=== PATIENT | female | born 1990 | race African-American/Black ===

== ENCOUNTER 2021-10-12 23:24 | Emergency (ER) | payer OTHER, SELFPAY ==
--- NOTE | ~2021-10-12 | CT_ITS ---
EXAMINATION: CT abdomen pelvis w con DATE: 10/13/2021 00:13 INDICATION: Periumbilical pain and drainage for one week TECHNIQUE: Computed tomography (CT) of the abdomen and pelvis was performed with 100 cc Omnipaque 350 intravenous contrast. Automated exposure control and iterative reconstruction technique were employe d. Exam dose: 1295.30 mGy-cm total exam DLP. COMPARISON: None. FINDINGS: The lung bases are clear of infiltrate or consolidation. Normal heart size. No pericardial or pleural effusion. The liver, gallbladder, bile ducts, spleen, pancreas, pancreatic duct, and adrenal glands and kidneys appear normal. Normal caliber of the abdominal aorta. No intraperitoneal or retroperitoneal or pelvic mass lesion or adenopathy or ascites. The uterus is enlarged. The adnexal areas are unremarkable. The urinary bladd er is relatively evacuated. The stomach is distended. No bowel obstruction or intraperitoneal free air. Small fat-containing umbilical hernia. Included skeletal structures are unremarkable. IMPRESSION: Small fat-containing umbilical hernia Reviewed, dictated and finalized at [facility]. Reviewed, dictated and finalized at [facility]. GENCY ROOM DOCTOR
[2021-10-12 23:28] VITALS: BP 147/83; PULSE 78; RESP 18; TEMP 36.9; O2SAT 100
[2021-10-12 23:48] LABS: Basophils Percent Auto 0.5 % (0.2-1.2); Eosinophils Absolute Auto 0.1 K/mm3 (0-0.3); Eosinophils Percent Auto 1.8 % (0-4.4); Hematocrit 33.5 % (37.0-47.0); Hemoglobin 10.5 g/dL (12.0-15.0); Immature Granulocyte Absolute 0.01 K/mm3 (0.00-0.031); Immature Granulocyte Percent A 0.1 % (0-0.5); Lymphocytes Absolute Auto 2.34 K/mm3 (0.9-3.2); Lymphocytes Percent Auto 30.8 % (18.3-44.2); Mean Corpuscular HGB Conc 31.3 g/dl (32-36); Mean Corpuscular Hemoglobin 24.8 pg (26-34); Mean Corpuscular Volume 79.2 fl (80-100); Mean Platelet Volume 11.6 fl (7.4-10.4); Monocytes Absolute Auto 0.5 K/mm3 (0.1-0.6); Monocytes Percent Auto 6.4 % (2.6-8.5); Neutrophils Absolute Auto 4.6 K/mm3 (1.3-6.7); Neutrophils Percent Auto 60.4 % (45.5-73.1); Platelet Count Result 380 k/mm3 (150-375); Red Blood Count 4.23 M/mm3 (4.2-5.4); Red Cell Distribution Width 14.3 % (11.5-14.5); White Blood Count 7.6 K/mm3 (4.5-10.0)
[2021-10-13 00:01] LABS: Anion Gap 11 mmol/L (8-16); Blood Urea Nitrogen 13 mg/dL (7-17); Calcium 9.7 mg/dL (8.4-10.2); Carbon Dioxide 26 mmol/L (22-30); Chloride 101 mmol/L (98-107); Estimated CRCL calculation 104 ml/min; Estimated Glomerular Filt Rate > 60; Glucose 109 mg/dL (65-110); Potassium 3.5 mmol/L (3.4-5.0); Sodium 138 mmol/L (137-145)
--- NOTE | 2021-10-13 00:49 | ED.ABDPAIN ---
HPI - Abdominal Pain General Chief Complaint: Abdominal Pain Stated Complaint: abdominal pain Time Seen by Provider: 10/12/21 23:31 Source: patient Mode of arrival: ambulatory Limitations: no limitations History of Present Illness HPI narrative: 30-year-old with no major medical problems here with complaints of pain around her umbilicus and drainage. She states that this started about a week ago drainage is foul-smelling and it constantly oozes. She denies any fever or chills. MD elicited complaint: abdominal pain Pertinent past history: none Onset (ago): week(s) (1) Location: periumbilical Severity: moderate Quality: aching Radiation: none Exacerbating factors: nothing Relieving factors: nothing Related Data Allergies Allergy/AdvReac Type Severity Reaction Status Date / Time No Known Allergies Allergy Verified 10/12/21 23:31 Review of Systems Review of Systems: All systems reviewed & are unremarkable except as noted in HPI and below Constitutional: Constitutional: Reports no additional constitutional complaints Eyes: Eyes: Reports no additional eye complaints ENT: Reports system reviewed and no additional complaints, except as documented Cardiovascular: Cardiovascular: Reports no additional cardiovascular complaints Respiratory: Respiratory: Reports no additional respiratory complaints Gastrointestinal: Gastrointestinal: Reports as per HPI Musculoskeletal: Musculoskeletal: Reports no additional musculoskeletal complaints Integumentary/Breasts: Skin/Breast: Reports system reviewed and no additional complaints, except as docu Exam Narrative: GENERAL: Well-appearing, well-nourished, and in no acute distress. HEAD: Normocephalic, atraumatic. EYES: PERRLA and EOMI. NECK: Supple. CHEST: Clear to auscultation. No respiratory distress. HEART: Regular rate and rhythm. No murmur heard. Normal peripheral pulses. ABDOMEN: Soft, tender around the umbilicus and clear drainage noted , nondistended, normal active bowel sounds. EXTREMITIES: Normal range of motion. No edema. SKIN: Warm, dry, no rash. NEURO: No focal deficits. Alert and oriented x3. PSYCH: Normal mood and affect. Course Course Emergency Course: Inform patient about her lab work, CT findings. Drainage most likely could be fungal infection will order miconazole cream and doxy Vital Signs Vital signs: Vital Signs Temperature 36.9 C 10/12/21 23:28 Pulse Rate 78 10/12/21 23:28 Respiratory Rate 18 10/12/21 23:28 Blood Pressure 147/83 H 10/12/21 23:28 Pulse Oximetry 100 10/12/21 23:28 Temperature 36.9 C 10/12/21 23:28 Pulse Rate 78 10/12/21 23:28 Respiratory Rate 18 10/12/21 23:28 Blood Pressure 147/83 H 10/12/21 23:28 Pulse Oximetry 100 10/12/21 23:28 MDM - Abdominal Pain Differential Diagnosis Differential diagnosis: Likely abdominal pain and acute appendicitis Medical Records Attestation: I reviewed the patient's medical records. Lab Data Attestation: I reviewed the patient's lab results. Result diagrams: 10/12/21 23:41 10/12/21 23:41 Labs: Lab Results 10/12/21 10/12/21 Range/Units 23:41 23:41 WBC 7.6 (4.5-10.0) K/mm3 RBC 4.23 (4.2-5.4) M/mm3 Hgb 10.5 L (12.0-15.0) g/dL Hct 33.5 L (37.0-47.0) % MCV 79.2 L (80-100) fl MCH 24.8 L (26-34) pg MCHC 31.3 L (32-36) g/dl RDW 14.3 (11.5-14.5) % Plt Count 380 H (150-375) k/mm3 MPV 11.6 H (7.4-10.4) fl Immature Gran % (Auto) 0.1 (0-0.5) % Neut % (Auto) 60.4 (45.5-73.1) % Lymph % (Auto) 30.8 (18.3-44.2) % [place] % (Auto) 6.4 (2.6-8.5) % Eos % (Auto) 1.8 (0-4.4) % Baso % (Auto) 0.5 (0.2-1.2) % Lymph # (Auto) 2.34 (0.9-3.2) K/mm3 [place] # (Auto) 0.5 (0.1-0.6) K/mm3 Eos # (Auto) 0.1 (0-0.3) K/mm3 Baso # (Auto) 0.0 (0.0-0.1) K/mm3 Abs Immat Gran (auto) 0.01 (0.00-0.031) K/mm3 Absolute Neuts (auto) 4.6 (1.3-6.7) K/mm3 Absolute Nucleated RBC 0.0 (0
[2021-10-13 01:07] VITALS: BP 132/79; PULSE 68; RESP 16; O2SAT 100
== END 2021-10-13 01:10 | disposition home or self-care (01) ==
PROVIDERS: Emergency Provider Family Medicine
DX: R10.33 Periumbilical pain (principal)
CPT/HCPCS: 36415; 74177; 80048; 81025; 85025; 99284; Q9967

== ENCOUNTER 2021-12-17 18:51 | Emergency (ER) | payer OTHER, SELFPAY ==
[2021-12-17 18:53] VITALS: BP 143/87; PULSE 102; RESP 18; TEMP 36.2; O2SAT 100
--- NOTE | 2021-12-17 19:28 | ED.GENADULT ---
HPI - General Adult General Chief complaint: Upper Respiratory Infection Stated complaint: sore throat Time Seen by Provider: 12/17/21 18:59 Source: RN notes reviewed History of Present Illness HPI narrative: Patient presents emergency department from home for sore throat. Patient states symptoms began yesterday. States she has throat pain that is worse with swallowing she states the pain radiates into the right ear denies any fevers or chills rhinorrhea cough abdominal pain or any other symptoms. States that she is able to swallow but is painful to swallow Related Data Allergies Allergy/AdvReac Type Severity Reaction Status Date / Time No Known Allergies Allergy Verified 12/17/21 18:55 Review of Systems Review of Systems: Gen.: Denies fevers or chills ENT: HPI Respiratory: Denies shortness of breath or cough CV: Denies chest pain or palpitations GI: Denies abdominal pain nausea, emesis Musculoskeletal: Denies back pain or muscle pain Neuro: Denies numbness, tingling, weakness or focal weakness Skin: Denies rash Except as documented, all other systems reviewed and negative [facility] Past Medical History Medical History (Updated 12/17/21 @ 19:31 by Sal Collado DO) Patient denies medical problems Social History Social History (Updated 12/17/21 @ 19:30 by Sal Collado DO) Smoking status: Never smoker Exam Narrative: APPEARANCE: No acute distress, nontoxic, resting in bed EYES: EOMI HEENT: Normocephalic, atraumatic, TMs clear bilaterally nares patent mucosa moist bilateral tonsils 3+ with feeling erythema of the bilateral tonsils and posterior pharynx white patient over the bilateral tonsils, uvula midline no trismus tolerating own secretions RESPIRATORY: No respiratory distress Clear to auscultation bilaterally with no rhonchi wheezing or rales. CARDIOVASCULAR: Regular rate and rhythm without murmurs rubs or gallops. ABDOMINAL: Soft, nontender MUSCULOSKELETAl: Moves all extremities. No clubbing, cyanosis or edema. NEURO: Awake and alert. Following commands, speech normal, no focal deficits SKIN:: Warm, dry. No rashes lesions or abrasions PSYCHIATRIC: Normal affect/mood, Course Course Emergency Course: Discussed with patient results of workup and diagnosis. Discussed need for follow-up with primary care, proper use of medication, and reasons to return to the emergency department. Patient understands and agrees to current treatment plan Vital Signs Vital signs: Vital Signs Temperature 97.1 F L 12/17/21 18:53 Pulse Rate 102 H 12/17/21 18:53 Respiratory Rate 18 12/17/21 18:53 Blood Pressure 143/87 H 12/17/21 18:53 Pulse Oximetry 100 12/17/21 18:53 Temperature 97.1 F L 12/17/21 18:53 Pulse Rate 102 H 12/17/21 18:53 Respiratory Rate 18 12/17/21 18:53 Blood Pressure 143/87 H 12/17/21 18:53 Pulse Oximetry 100 12/17/21 18:53 Medical Decision Making Vital Signs Vital Signs: Vital Signs Temperature 97.1 F L 12/17/21 18:53 Pulse Rate 102 H 12/17/21 18:53 Respiratory Rate 18 12/17/21 18:53 Blood Pressure 143/87 H 12/17/21 18:53 Pulse Oximetry 100 12/17/21 18:53 Temperature 97.1 F L 12/17/21 18:53 Pulse Rate 102 H 12/17/21 18:53 Respiratory Rate 18 12/17/21 18:53 Blood Pressure 143/87 H 12/17/21 18:53 Pulse Oximetry 100 12/17/21 18:53 Lab Data Labs: Strep Screen Presumptive Negative *(Reference Range: Negative)* Discharge Plan Discharge Clinical Impression: Pharyngitis Patient Disposition: Home, Self-Care Condition: Stable Instructions: Antibiotic Form, Pharyngitis (ED) Additional Instructions: Return for increasing throat pain inability to swallow or any other symptoms of concern Prescriptions: New ibuprofen [IBU] 600 mg tablet 600 mg PO Q6H PRN (Reason: pain) Qty: 20 RF: 0 amoxicillin-pot clavulanate [Augmentin] 875-125 mg tablet 1 tablet PO Q
[2021-12-17] MEDS: AMOXICILLIN/CLAVULANATE K 875-125 MG TAB 1 TABLET PO (19:37)
[2021-12-17] MEDS: IBUPROFEN 600 MG TABLET PO (19:37)
== END 2021-12-17 19:41 | disposition home or self-care (01) ==
PROVIDERS: Emergency Provider Emergency Medicine; PCP Emergency Medicine
DX: J02.9 Acute pharyngitis, unspecified (principal)
CPT/HCPCS: 87081; 87880; 99283; A9270

== ENCOUNTER 2022-05-04 18:51 | Emergency (ER) | payer OTHER, SELFPAY ==
[2022-05-04 19:23] VITALS: BP 136/89; PULSE 77; RESP 18; TEMP 36.2; O2SAT 100
--- NOTE | 2022-05-04 19:52 | PC.NURSE ---
VRBO POC STREP TEST PER ERP HAIDER HAYNES
[2022-05-04] MEDS: IBUPROFEN 400 MG TABLET 800 MG PO (20:35)
[2022-05-04] MEDS: ACETAMINOPHEN 500 MG TABLET 1000 MG PO (20:36)
--- NOTE | 2022-05-04 20:36 | ED.URI ---
HPI - URI/Sore Throat General Chief Complaint: Upper Respiratory Infection Stated Complaint: sore throat, URI Time Seen by Provider: 05/04/22 20:15 Source: patient History of Present Illness HPI Narrative: Patient presents with sore throat for the past 2 days she is concerned that she has strep throat. Denies cough or fevers times her throat is achy pain is constant, no radiation, worse with swallowing. She denies any fevers, nausea, vomiting. Denies any difficulty breathing. Related Data Allergies Allergy/AdvReac Type Severity Reaction Status Date / Time No Known Allergies Allergy Verified 05/04/22 19:25 Review of Systems Review of Systems: CONSTITUTIONAL: Denies fever, chills, or sweats. EYES: Denies visual changes, redness, or discharge. ENT: Denies rhinorrhea, congestion,or otalgia. CARDIOVASCULAR: Denies chest pain, palpitations, or edema. RESPIRATORY: Denies cough or dyspnea. GASTROINTESTINAL: Denies abdominal pain, nausea, vomiting, or diarrhea. SKIN: Denies rash or itching. MUSCULOSKELETAL: Denies back pain, joint pain, or myalgia. NEUROLOGIC: Denies headache, numbness, dizziness, or weakness. PMFSH Past Medical History Medical History Patient denies medical problems Social History Social History Smoking status: Never smoker Exam Narrative: GENERAL: Well-appearing, well-nourished, and in no acute distress. HEAD: Normocephalic, atraumatic. EYES: PERRLA and EOMI. ENT: Nares clear, no rhinorrhea or epistaxis. Mucous membranes moist. Erythema in the posterior pharynx no uvula deviation no tonsillar edema no exudates NECK: Supple. No masses. No JVD left anterior cervical lymphadenopathy EXTREMITIES: Normal range of motion. No edema. SKIN: Warm, dry, no rash. NEURO: No focal deficits. Alert and oriented x3. PSYCH: Normal mood and affect. Course Vital Signs Vital signs: Vital Signs Temperature 36.2 C L 05/04/22 19:23 Pulse Rate 77 05/04/22 19:23 Respiratory Rate 18 05/04/22 19:23 Blood Pressure 136/89 05/04/22 19:23 Pulse Oximetry 100 05/04/22 19:23 Oxygen Delivery Room Air 05/04/22 19:23 Temperature 36.2 C L 05/04/22 19:23 Pulse Rate 72 05/04/22 21:19 Respiratory Rate 16 05/04/22 21:19 Blood Pressure 136/89 05/04/22 19:23 Pulse Oximetry 98 05/04/22 21:19 Oxygen Delivery Room Air 05/04/22 19:23 MDM - URI/Sore Throat MDM Narrative Medical decision making narrative: H&P as above, vss, pt looks clinically well, exam erythema in the posterior pharynx, labs with negative for strep, additional labs/img considered, symptomatic relief available as needed, on reevaluation pt continues to looks clinically well. Suspect viral pharyngitis, dns peritonsillar abscess, airway compromise, severe sepsis. plan to tx/monitor as op w/ pcm f/u findings/plan discussed with pt, pt agree/comfortable with plan, return precautions given Lab Data Labs: Strep Screen Presumptive Negative *(Reference Range: Negative)* Discharge Plan Discharge Clinical Impression: Pharyngitis Patient Disposition: Home, Self-Care Condition: Improved Instructions: Antibiotic Form, Pharyngitis (ED) Additional Instructions: Please return if your symptoms worsen or fail to improve. If you develop a fever, can not eat/drink anything or if you have any other concerns. Prescriptions: New Magic Mouthwash (Dr. Barakat) 120 mL suspension 5 ml PO QID PRN (Reason: sore throat) Qty: 120 0RF Rx Instructions: Swish and and spit diphenhydramine 12.5 mg/5 mL oral elixir 40 mL; Lidocaine Viscous 2 % mucosal solution 40 mL; Maalox 200 mg-200 mg-20 mg/5 mL oral suspension 40 mL; Per 120 mL No Action ibuprofen [IBU] 600 mg tablet 600 mg PO Q6H PRN (Reason: pain) Qty: 20 0RF amoxicillin-pot clavulanate [Aug
[2022-05-04 21:19] VITALS: PULSE 72; RESP 16; O2SAT 98
== END 2022-05-04 21:20 | disposition home or self-care (01) ==
PROVIDERS: Emergency Provider Emergency Medicine; PCP Emergency Medicine
DX: J02.9 Acute pharyngitis, unspecified (principal)
CPT/HCPCS: 87081; 87880; 99283; A9270

== ENCOUNTER 2024-03-12 21:14 | Emergency (ER) | payer OTHER, SELFPAY ==
--- NOTE | ~2024-03-12 | US_ITS ---
EXAMINATION: US OB <=14 wk fetus w TV DATE: 03/12/2024 23:30 INDICATION: Pelvic pain. TECHNIQUE: Real-time transabdominal and transvaginal pelvic ultrasound was performed. COMPARISON: None. FINDINGS: TRANSABDOMINAL ULTRASOUND: The uterus measures 10.4 x 5.0 x 7.6 cm. TRANSVAGINAL ULTRASOUND: There is no visible intrauterine gestational sac. The endometrial complex me asures 16 mm in thickness. The right ovary measures 3.7 x 2.0 x 1.9 cm. The left ovary measures 3.1 x 1.5 x 1.7 cm. There is normal vascular flow in the ovaries. There is no free fluid in the pelvis. IMPRESSION: 1. No visible intrauterine gestational sac, which may be normal in early . Spontaneous abor tion and ectopic are not excluded. Serial beta-hCGs are recommended. Reviewed, dictated and finalized at [facility]. IMPRESSION: 1. No visible intrauterine gestational sac, which may be normal in early pregn clifton. Spontaneous and ectopic are not excluded. Serial beta- hCGs are recommended.
[2024-03-12 21:15] VITALS: BP 134/78; PULSE 96; RESP 15; TEMP 36.7; O2SAT 100
[2024-03-12 21:35] LABS: Basophils Percent Auto 0.5 % (0.2-1.2); Eosinophils Absolute Auto 0.1 K/mm3 (0-0.3); Eosinophils Percent Auto 1.1 % (0-4.4); Hematocrit 33.5 % (37.0-47.0); Hemoglobin 10.5 g/dL (12.0-15.0); Immature Granulocyte Absolute 0.02 K/mm3 (0.00-0.031); Immature Granulocyte Percent A 0.3 % (0-0.5); Lymphocytes Absolute Auto 1.95 K/mm3 (0.9-3.2); Lymphocytes Percent Auto 24.4 % (18.3-44.2); Mean Corpuscular HGB Conc 31.3 g/dl (32-36); Mean Corpuscular Hemoglobin 25.4 pg (26-34); Mean Corpuscular Volume 80.9 fl (80-100); Mean Platelet Volume 11.4 fl (7.4-10.4); Monocytes Absolute Auto 0.4 K/mm3 (0.1-0.6); Monocytes Percent Auto 5.5 % (2.6-8.5); Neutrophils Absolute Auto 5.5 K/mm3 (1.3-6.7); Neutrophils Percent Auto 68.2 % (45.5-73.1); Platelet Count Result 318 k/mm3 (150-375); Red Blood Count 4.14 M/mm3 (4.2-5.4); Red Cell Distribution Width 14.3 % (11.5-14.5)
[2024-03-12 21:41] LABS: Appearance Urine Cloudy (Clear); Bacteria Urine 3+ /hpf; Bilirubin Urine Negative (Negative); Blood Urine 1+ (Negative); Color Urine Yellow (Yellow); Glucose Urine UA Negative (Negative); Ketones Urine Negative (Negative); Leukocyte Esterase Ur Trace LEU/UL (Negative); Nitrate Urine Negative (Negative); Non Pathogenic Casts 0-2; Protein Urine Negative (Negative); RBC Urine 0-2 /hpf (0-2); Specific Grav Ur 1.012 (1.001-1.035); Squamous Epithelial Cell Urine Many /hpf (Few); Urobilinogen Urine 0.2 mg/dL (<2.0); pH Urine 5.5 (5.0-9.0)
[2024-03-12 21:43] LABS: Add Urine Microscopic? YES
[2024-03-12 21:44] LABS: Alanine Aminotransferase 15 U/L (6-35); Albumin Level 4.6 g/dL (3.5-5.1); Alkaline Phosphatase 65 U/L (38-126); Anion Gap 10 mmol/L (4-12); Aspartate Amino Transferase 21 U/L (14-36); Bilirubin,Total 0.3 mg/dL (0.2-1.3); Blood Urea Nitrogen 12 mg/dL (7-17); Calcium 9.6 mg/dL (8.4-10.2); Carbon Dioxide 20 mmol/L (22-30); Chloride 108 mmol/L (98-107); Estimated CRCL calculation 115 ml/min; Estimated Glomerular Filt Rate > 60; Glucose 106 mg/dL (65-110); Lipase 108 U/L (23-300); Potassium 3.4 mmol/L (3.4-5.0); Sodium 138 mmol/L (137-145)
[2024-03-12 22:04] LABS: Beta HCG Quantitative 184.21 mIU/ML
--- NOTE | 2024-03-12 22:51 | PC.NURSE ---
Pt in imaging at this time.
[2024-03-12 23:37] VITALS: BP 136/83; PULSE 81; RESP 18; O2SAT 99
--- NOTE | 2024-03-13 00:09 | ED.ABDPAIN ---
HPI - Abdominal Pain General Chief Complaint: Abdominal Pain Stated Complaint: abd pain Time Seen by Provider: 03/12/24 21:21 History of Present Illness HPI narrative: Patient presenting with suprapubic discomfort for the last week and some nausea vomiting, no diarrhea, no fevers or chills. Related Data Allergies Allergy/AdvReac Type Severity Reaction Status Date / Time No Known Allergies Allergy Verified 03/12/24 21:24 Review of Systems Review of Systems: All systems reviewed & are unremarkable except as noted in HPI and below PMFSH Past Medical History Medical History Patient denies medical problems Social History Social History Smoking status: Never smoker Exam Narrative: EXAMINATION OF ORGAN SYSTEMS/BODY AREAS: Constitutional: Vital signs per nursing GENERAL:[No acute distress, non-toxic appearing.] HEAD: Normal with no signs of head trauma. EYES: EOMI, conjunctiva normal ENT: Hearing grossly intact LUNGS: Nonlabored breathing. HEART: [Regular rate and rhythm] ABD: [Soft], [very minimally tender to palpation suprapubic abdomen] EXT: Normal range of motion SKIN: [No rashes or lesions.] NEURO: [Alert and oriented x 3. No gross focal sensory or strength deficits.] PSYCH: Normal affect Course Vital Signs Vital signs: Vital Signs Temperature 98.1 F 03/12/24 21:15 Pulse Rate 96 03/12/24 21:15 Respiratory Rate 15 03/12/24 21:15 Blood Pressure 134/78 03/12/24 21:15 Pulse Oximetry 100 03/12/24 21:15 Oxygen Delivery Room Air 03/12/24 21:15 Temperature 98.1 F 03/12/24 21:15 Pulse Rate 81 03/12/24 23:37 Respiratory Rate 18 03/12/24 23:37 Blood Pressure 136/83 03/12/24 23:37 Pulse Oximetry 99 03/12/24 23:37 Oxygen Delivery Room Air 03/12/24 21:15 MDM - Abdominal Pain MDM Narrative Medical decision making narrative: A 33 female presenting with lower abdominal pain, well appearing on exam minimal tenderness to palpation suprapubic abdomen, differential includes , UTI, STD, labs consistent with UTI with bacteria and 11-20 WBCs though contaminated, she is also . Given this I will treat her with antibiotics. I did attempt pocus however cannot visualize IUP, and to over lateral and however too early to tell. Strict return precautions discussed with patient regarding miscarriage versus ectopic, in that she needs to follow-up with OBGYN for repeat this hCG and/or ultrasound, she has no intention of keeping the , I will start her on antibiotics and she can return for any further issues. It is Lab Data 03/12/24 21:28 03/12/24 21:28 Labs: Lab Results 03/12/24 Range/Units 21:28 WBC 8.0 (4.5-10.0) K/mm3 RBC 4.14 L (4.2-5.4) M/mm3 Hgb 10.5 L (12.0-15.0) g/dL Hct 33.5 L (37.0-47.0) % MCV 80.9 (80-100) fl MCH 25.4 L (26-34) pg MCHC 31.3 L (32-36) g/dl RDW 14.3 (11.5-14.5) % Plt Count 318 (150-375) k/mm3 MPV 11.4 H (7.4-10.4) fl Immature Gran % (Auto) 0.3 (0-0.5) % Neut % (Auto) 68.2 (45.5-73.1) % Lymph % (Auto) 24.4 (18.3-44.2) % [place] % (Auto) 5.5 (2.6-8.5) % Eos % (Auto) 1.1 (0-4.4) % Baso % (Auto) 0.5 (0.2-1.2) % Lymph # (Auto) 1.95 (0.9-3.2) K/mm3 [place] # (Auto) 0.4 (0.1-0.6) K/mm3 Eos # (Auto) 0.1 (0-0.3) K/mm3 Baso # (Auto) 0.0 (0.0-0.1) K/mm3 Abs Immat Gran (auto) 0.02 (0.00-0.031) K/mm3 Absolute Neuts (auto) 5.5 (1.3-6.7) K/mm3 Absolute Nucleated RBC 0.000 (0.0-0.012) K/mm3 Nucleated RBC % 0.0 (0.0-0.2) % Sodium 138 (137-145) mmol/L Potassium 3.4 (3.4-5.0) mmol/L Chloride 108 H (98-107) mmol/L Carbon Dioxide 20 L (22-30) mmol/L Anion Gap 10 (4-12) mmol/L BUN 12 (7-17) mg/dL Creatinine 0.70 (0.7-1.0) mg/dL Estim Creat Clear Calc 115 ml/min Estimated GFR > 60 (59 - ) Glucose 106 (6
== END 2024-03-13 00:10 | disposition home or self-care (01) ==
PROVIDERS: Emergency Provider Emergency Medicine; PCP Emergency Medicine
DX: O26.891 Other specified pregnancy related conditions, first trimester (principal); R10.30 Lower abdominal pain, unspecified; Z3A.01 Less than 8 weeks gestation of pregnancy
CPT/HCPCS: 36415; 76801; 76817; 80053; 81001; 81025; 83690; 84702; 85025; 87086; 87088; 96365; 99284; J0696

== ENCOUNTER 2024-04-25 02:05 | Day surgery (SDC) | payer OTHER, SELFPAY ==
[2024-04-23 15:19] VITALS: BMI 38.8
--- NOTE | 2024-04-23 15:20 | PC.NURSE ---
Report to the Outpatient Waiting Room, entrance under the green pavilion located off [facility], at time _0830_ on date _[id number]_. Planned Procedure Time: _1030_. Time changes happen often and if your time is changed the preop area will call you the afternoon before. - You and your visitor will be asked to self-screen and do not enter if you have any COVID symptoms. - A mask is optional within the hospital at this time. Patients may have clear liquids (water, carbonated beverages, clear teas, apple juice) until 3 hours prior to surgery with a maximum of 20 ounces. - No food from midnight until time of surgery Take the following medications with a SIP of water the morning of surgery: ____None DO NOT STOP ANY OF YOUR OTHER PRESCRIPTION MEDICATIONS PRIOR TO SURGERY ?EXCEPT THE FOLLOWING Medications to discontinue per physician None Date to take last dose Please no make-up, nail mosotho, hairspray, perfume, deodorant, or body powder the day of surgery. No jewelry (including any body piercings) or valuables the day of surgery, leave them at home. Please take a shower or bath the night before, or the morning of, surgery with an antibacterial soap. Wear comfortable, loose fitting clothing. - Jewelry must be removed prior to entering the operating room. Rings and piercings that are not removed may be cut off. - The hospital will not accept responsibility for valuables. - Please leave all valuables, including medications, at home the day of surgery. If you are going home after surgery, a licensed refrigerated company driver must drive you home. - NO public transportation without another adult if you receive anesthesia. - We recommend that an adult stay with you for 24 hours following discharge. - We also recommend that you do not drive, make important decision, drink alcoholic beverages, or take any drugs that were not prescribed by your health care provider for at least 24 hours after your discharge time. Follow any additional instructions given to you from your surgeon. If you or anyone in your household have experienced Covid symptoms in the past week, please notify your surgeon or the nurse liaison at the phone number below for possible testing. Telephone instructions given to __Thony__and asked if any additional questions and then verbalized understanding. Patient advised to call surgeon office or pre surgery nurse liaison [phone] if any additional questions.
[2024-04-25] MEDS: ACETAMINOPHEN 500 MG TABLET 1000 MG PO (09:00)
[2024-04-25] MEDS: LACTATED RINGERS 1,000 ML 30 ML IV CONT ×2 (09:40→10:54)
--- NOTE | 2024-04-25 09:51 | P.PNAN_ITS ---
Anes - Initial Pre Proc Eval Procedure: Operation Date: 04/25/24 10:30 Proposed Procedures p Suction Dilation and Curettage - Vaughn Payton MD Date/Time: 04/25/24 09:51 Surgeon: Vaughn Payton MD Pre Op Diagnosis: Missed Ab Patient Data Age: 33 Gender: F Height: 1.65 m Weight: 105.9 kg Allergies Allergy/AdvReac Type Severity Reaction Status Date / Time No Known Allergies Allergy Verified 04/25/24 08:52 Home Medications Medication Instructions Recorded Confirmed Type ferrous sulfate 325 mg (65 mg 325 mg PO DAILY 04/23/24 04/25/24 History iron) tablet Patient hx anesthesia problems: post op nausea/vomiting Family hx anesthesia problems: none Results Review: All pre-operative results and documents have been reviewed as part of the pre- operative evaluation. [facility] Past Medical History Medical History Patient denies medical problems Social History Social History Smoking status: Never smoker Alcohol intake: current Drinks per week: 1 Living arrangements: with family Spiritual care concerns: No Anes - Eval Final PreProcedure Day of Procedure 04/25/24 09:51 Patient weight: obese Heart: regular rate and rhythm Lungs: clear to auscultation Airway: Mallampati scale class III Neurological: alert and oriented Last oral intake: >/= 8 hours ASA classification: III Emergent: no Anesthetic plan: proceed Anesthesia type and monitoring: general GIVS and standard monitoring Results Review: All pre-operative results and documents have been reviewed as part of the pre- operative evaluation. Informed Consent: The patient's anesthetic plan and its attendant risks and benefits were discussed with the patient/family/POA. Questions were solicited and answers provided to the satisfaction of the patient/family/POA.
[2024-04-25 09:55] VITALS: BP 118/71; PULSE 74; RESP 16; TEMP 36.4; O2SAT 100
--- NOTE | 2024-04-25 10:09 | WPDHPUPDATE1 ---
History and Physical Update Update Date/Time: 04/25/24 10:09 History and Physical has been reviewed, including an updated exam of the patient. There are NO changes in the patient's condition. Risks, benefits, and alternatives have been discussed and questions answered. Patient agrees to proceed with procedure.
--- NOTE | 2024-04-25 10:49 | W.PM.PROC2 ---
Procedure Note - Detailed Date of Procedure 04/25/24 Pre-op Diagnosis Missed Ab Post-op Diagnosis Same Procedure Performed Suction D&C Surgeon Vaughn Payton MD Anesthesia MAC Indications missed Findings normal-appearing vulva vagina and cervix to. Moderate amount of products conception within the uterus. 15 cm uterus Description of Procedure the patient was taken the operating room. She was prepped and draped in dorsal lithotomy position after induction of mac anesthesia. A speculum was placed in the vagina. Cervix grasped with tenaculum. The cervix was dilated to about 1 cm Using Bruno dilators. A 8. [place] curved curette was used to perform suction D&C. The curette was introduced and vacuum was applied. The curette was removed over all surfaces of the intrauterine cavity multiple times. This was done until all the surfaces were clear and had the familiar grainy texture they can be felt through the instrument. A sharp curette was then used to curettage all the surfaces. The suction cup was then reapplied 1 more time to remove any debris. The instruments were removed. The speculum and tenaculum were removed. The patient tolerated the procedure well. She was taken recovery room stable condition. Estimated Blood Loss 50 Drains No Packing No Pathology Yes Complications No immediate complications Condition Stable Disposition PACU
[2024-04-25 10:54] VITALS: BP 108/72; PULSE 82; RESP 16; O2SAT 100
[2024-04-25 11:05] VITALS: BP 118/78; PULSE 75; RESP 15; O2SAT 100
[2024-04-25] MEDS: oxyCODONE HCL (*CRX) 5 MG TAB IR PO (11:20)
[2024-04-25 11:30] VITALS: BP 111/67; PULSE 70; RESP 15; O2SAT 100
[2024-04-25] MEDS: fentaNYL CITRATE INJ (*CRX) 100 MCG/2 ML VIAL 25 MCG IV PUSH ×2 (11:34→11:39)
[2024-04-25 12:00] VITALS: BP 99/62; PULSE 72; RESP 16; O2SAT 99
== END 2024-04-25 12:20 | disposition home or self-care (01) ==
PROVIDERS: PCP Emergency Medicine; Visit Provider Obstetrics & Gynecology
PROC: (CPT 59820; principal; 2024-04-25 10:30)
DX: O02.1 Missed abortion (principal)
CPT/HCPCS: 59820; 36415; 85461; 86850; 86900; 86901; 88305; A9270; J1100; J2250; J2405; J2704; J3010; J7120

== ENCOUNTER 2025-01-29 20:27 | Emergency (ER) | payer OTHER, SELFPAY ==
--- OUTSIDE RECORDS SUMMARY | 2025-01-29 20:30 | XMS_ITS | Data Portability ---
Author Organization [facility] Address [address] [place] [address] Assessment No assessment recorded. Plan of Treatment Reminders Order Date Submit Date Provider Last Modified By Organization Details Last Modified Time Details Appointments None recorded. Lab None recorded. Referral None recorded. Procedures None recorded. Surgeries None recorded. Imaging US, obstetric, 1st trimester 2023 024 [email or web address] [place], [facility] [address], [place], [address], 20:30:56 Medication Orders None recorded. Patient TargetsNo targets recorded. Patient InstructionsNo instructions recorded. Reason for Referral None Reported. Results Created Date Observation Date Name Description Value Unit Range Abnormal Flag Note LastModifiedBy Organization Detail LastModifiedTime 04/17/20 24 04/17/2024 US, obste tric, 1st trime ster No observ ation record ed. [facility] [address], [place], [address], 04/17/2024 17:10:47 04/17/20 24 04/17/2024 US, obste tric, 1st trime ster No observ ation record ed. HERBER Irvin [address], [place], [address], 05/01/2024 11:46:07 Result Notes None recorded. Procedures Surgical History Date Name Laterality Status Provider Name and Address Organization Details Recorded Time SUCTION DILATION & CURETTAGE (SURG) completed Deven Fuller [facility] 04/25/2024 12:55:31 3 Date of Last Pap Smear [facility] 04/17/2024 14:51:09 8 section completed [facility] 04/17/2024 14:53:47 3 section completed [facility] 04/17/2024 14:53:41 8 section completed [facility] 04/17/2024 14:53:35 Imaging Results Imaging Date Name Status LastModified by Organiz ation Details LastModified Time 04/17/2024 US, obstetric, 1st trimester completed [place] [address], [place], [address], 04/17/2024 17:10:47 04/17/2024 US, obstetric, 1st trimester completed HERBER Brandee [address], [place], [address], 05/01/2024 11:46:07 Procedure Notes None recorded. Medical Equipment None Reported. Allergies No known drug allergies Medications Name Sig Start Date Stop Date Status Note LastModified by Organization Details LastModified Time fluconazole 150 mg tablet TAKE 1 TABLET BY MOUTH 1 TIME AFTER COMPLETIN G ANTIBIOTI C 05/01 completed Not Available Not Available Not Available cefdinir 300 mg capsule TAKE 1 CAPSULE BY MOUTH EVERY 12 HOURS active Not Available Not Available No t Available Vitals Date Recorded Body height Body mass index (BMI) Body weight Systolic blood pressure Diastolic blood pressure Provider Name and Address Organization Details Last Updated DateTime 04/17/2024 165.1 cm 38.8 kg/m2 115900.0 2 g 138 mm[Hg] 78 mm[Hg] [facility] 14:50:48 Date Recorded Body height Body mass index (BMI) Body weight Systolic blood pressure Diastolic blood pressure Provider Name and Address Organization Details Last Updated DateTime 05/01/2024 165.1 cm 39.3 kg/m2 685175.8 g 115 mm[Hg] 78 mm[Hg] Carleen Stahl [facility] 11:23:12 Social History Question Answer Notes LastModified by Organizat ion Details LastModified Time Tobacco Smoking Status Never Smoker Carleen Stahl null, [facility] 04/17/2024 14:53:11 Are You Blind Or Do You Have Difficulty Seeing? No Information n ot available 04/17/2024 In The 14 Days Before Symptom Onset, Have You Had Close Contact With A Laboratory-confirm ed COVID-19 While That Case Was Ill? No [email or web address] Information n ot available 04/17/2024 In The 14 Days Before Symptom Onset, Have You Had Close Contact With A Person Who Is Under Investigation For COVID-19 While That Person Was Ill? No [email or web address] Information not available 04/17/2024 Have You Been To An Area Known To Be High Risk For COVID-19? No Information not available 04/17/2024 Are You Deaf Or Do You Have Serious Difficulty Hearing? No [email or web address] Information not available 04/17/2024 Do You Use Your Seat Belt Or Car Seat Routinely? Yes [email or web address] Information not available 04/17/2024 Are You Sexually Active? Yes [email or web address] Information not available 04/17/2024 Do You Have Smoke And Carbon Monoxide Detectors In Your Home? Yes [email or web address] Information not available 04/17/2024 Do You Use Sunscreen Routinely? Yes [email or web address] Information not available 04/17/2024 Sex: Unknown Functional Status Question Answer Note LastModified by Organizat ion Details LastModified Time Do you have difficulty walking or climbing stairs? No [email or web address] Information not available 04/17/2024 Are you able to walk? YESWOREST [email or web address] Information not available 04/17/2024 Are you able to care for yourself? Yes [email or web address] Information not available 04/17/2024 Do you have difficulty dressing or bathing? No [email or web address] Information not available 04/17/2024 Mental Status None recorded. Family History Nothing Reported. Medical History Condition Response Allergies (Food, seasonal, environmental ) N Other N Breast Cancer N Drug/Latex Allergies/Reactions N Blood Transfusion N Dermatologic Disorders N Lung Disease N Defects or Inherited Disease N Breast Problem N Gestational Diabetes N Hematologic disorders N Anesthesia Complications N History of STI N Deep Vein Thrombosis N Polycystic ovary syndrome N Anxiety Disorder N Autoimmune disease N Arthritis N Infertility N Polyps N Acid Reflux (GERD) N History of abnormal pap N Cancer N Stroke N Varicosities N Neurologic/Epilepsy N Endometriosis N High Cholesterol N Headaches N Fibromyalgia N Kidney Disease N Heart Problems N Kidney or Bladder Problems N Thyroid Problems N GI Problems N Eating Disorder N Anemia N Art (IVF or FET) N Psychiatric Illness N Ovarian Cancer N Diabetes N Pulmonary (TB, Asthma) N Hepatitis/Liver Disease N No Past Medical History N Eczema N Urinary Tract Infection N Abuse/Domestic Violence N Asthma N Trauma/Violence N Depression/ depression N Heart Disease N Pre-Eclampsia N Hypertension N Osteoporosis N Thrombophilias N Gynecological History Statement/Question Response Abnormal Pap N Are cycles usually normal Y Date of LMP 02/14/2024 Sexually Active? Y Was last menstrual period normal Y Date of Last Pap Smear 09/09/2023 Sexual Problems? N LMP Approximate Obstetrics History GPAL:G 3 P 0 0 0 3 Type Value Living 3 Total 3 Past Encounters Encounter ID Performer Location Encounter Start Date Encounter Closed Date Diagnosis/Indication Diagnosis SNOMED-CT Code Diagnosis ICD10 Code Diagnosis Note [id number] Kelsea Vela [place] [address] [address] 04/17/2024 14:17:13 04/17/2024 14:59:04 Missed miscarriage [id number] O02.1 Z3A.08 [id number] Vaughn Payton MD [place] [address] [address] 04/17/2024 14:22:01 04/17/2024 14:58:52 Missed miscarriage [id number] O02.1 Z3A.08 this patient is a 33-year-ol d female who has missed miscarriag e. We have agreed to perform suction D&C. She understand s the procedure. She understand s risks, benefits, and alternativ es. She is completed the informed consent process and is ready to proceed. Spent 40 minutes face-to-fa ce. More than 50% was counseling made a decision to perform surgery. [id number] Vaughn Payton MD [place] [address] [address] 05/01/2024 11:15:37 05/01/2024 12:24:50 Missed miscarriage [id number] O02.1 Z3A.08 this patient presents for postop follow-up. She is 1 week postop from a suction D&C. She is recovering normally. Her bleeding is minimal. She has no foul-smell ing vaginal discharge. She denies any nausea, vomiting, fever, chills. We discussed contracept ion. We discussed future . She will follow up for a repeat test. Health Concerns Section Related Observation LastModified by Organization Detai ls LastModified Time None Recorded Concern Status LastModified by Organization Details LastModified Time None Recorded Advance Directives Directive None Recorded Payers Encounter Date Sequence Insurance Name Policy Number Policy Barrow Covered Member ID Barrow Member ID Guarantor Name 04/17/2024 1 [facility] ON OR AFTER 05/26/21 (MEDICAID REPLACEMENT - HMO) Harjinderalberto Willy [id number] Harjinderalberto Willy 04/17/2024 1 [facility] ON OR AFTER 05/26/21 (MEDICAID REPLACEMENT - HMO) Harjinderyannickfannie Aguilera [id number] Ryyannickha Green 05/01/2024 1 [facility] ON OR AFTER 05/26/21 (MEDICAID REPLACEMENT - HMO) Harjinderalberto Willy [id number] Thony Willy Notes Date Note Type Note Provider Name and Address Organization Details Recorded Time 04/17/2024 text/html This patient is a 33 female who presents for [missed discussed the etiology, frequency, natural history, and treatment of this condition. Spent more than 35 minutes talking about the above, as well as, her history, the particular findings of her case, and detail of her the treatment options. We discussed the risk benefits of each option. She understands the risk include infection and hemorrhage. She understands a D&C also holds the risk of injury. She understands that waiting can result in a septic that is even more difficult to treat. We talked about signs and symptoms of infection. decided suction D&C quickly. I explained the procedure to her in detail. The patient understands the procedure. The procedure was described to the patient in great detail. the patient also understands the risks. The risks were also explained in detail. She understands that injuries May occur during surgery. She understands these injuries can result in hospitalization, more surgery, and severe illness. She understands there is risk of hemorrhage and infection. Vaughn Payton MD [address], [place], [address], [facility] 04/17/2024 15:09:25 05/01/2024 text/html this patient presents for postop follow-up. She is 1 week postop from a suction D&C. She is recovering normally. Her bleeding is minimal. She has no foul-smelling vaginal discharge. She denies any nausea, vomiting, fever, chills. We discussed contraception. We discussed future . She will follow up for a repeat test. Vaughn Payton MD [address], [place], [address], [facility] 05/01/2024 12:24:01 OBGyn Episode Ob Episode Information Episode Created Date Number of Fetuses Patient Bloodtype Patient rh Status Prepregnancy Weight lbs Domestic Partner Domestic Partner Phone Father Name Car Tester Status 04/17/20 24 1 CLOSED Fetus Data First Name Last Name Admitted to NICU Weight (g) Sex Living Outcome Pediatric Complications Fetus ID Race Codes Race Delivery Type M Full Term [id number] Primary Homero Calculation Initial Homero Date Initial Exam Date Initial Exam Provider Initial Ultrasound Date Last Menstrual Period Date Ultra Sound Weeks Gestation 0 Eighteen To Twenty Week Homero Update Ultra Sound Date Fundal Height At Umbil Quickening Date Ultra Sound Latest Weeks Gestation Final Homero Confirmed By Final Homero Confirmed Date Final Homero Date Ultra Sound Latest Days Gestation 0 0 Menstrual History Last Menstrual Date Menses Monthly On Bcp Conception Prior Menses Frequency Hcg Plus Date Menarche Onset Age Delivery Information Delivery Date Delivery Type Labor Anesthesia Weeks Gestation Incision Type Labor Labor Length Hrs Delivered By Post Complications Tubal Sterilization Discharge Date Comments 8 Discharge Information Feeding Method Contraceptive Method Maternal HG B and HCT Levels Ob Episode Information Episode Created Date Number of Fetuses Patient Bloodtype Patient rh Status Prepregnancy Weight lbs Domestic Partner Domestic Partner Phone Father Name Car Tester Status 04/17/20 24 1 CLOSED Fetus Data First Name Last Name Admitted to NICU Weight (g) Sex Living Outcome Pediatric Complications Fetus ID Race Codes Race Delivery Type M Full Term [id number] Primary Homero Calculation Initial Homero Date Initial Exam Date Initial Exam Provider Initial Ultrasound Date Last Menstrual Period Date Ultra Sound Weeks Gestation 0 Eighteen To Twenty Week Homero Update Ultra Sound Date Fundal Height At Umbil Quickening Date Ultra Sound Latest Weeks Gestation Final Homero Confirmed By Final Homero Confirmed Date Final Homero Date Ultra Sound Latest Days Gestation 0 0 Menstrual History Last Menstrual Date Menses Monthly On Bcp Conception Prior Menses Frequency Hcg Plus Date Menarche Onset Age Delivery Information Delivery Date Delivery Type Labor Anesthesia Weeks Gestation Incision Type Labor Labor Length Hrs Delivered By Post Complications Tubal Sterilization Discharge Date Comments 8 Discharge Information Feeding Method Contraceptive Method Maternal HG B and HCT Levels Ob Episode Information Episode Created Date Number of Fetuses Patient Bloodtype Patient rh Status Prepregnancy Weight lbs Domestic Partner Domestic Partner Phone Father Name Car Tester Status 04/17/20 24 1 CLOSED Fetus Data First Name Last Name Admitted to NICU Weight (g) Sex Living Outcome Pediatric Complications Fetus ID Race Codes Race Delivery Type F Full Term [id number] Primary Homero Calculation Initial Homero Date Initial Exam Date Initial Exam Provider Initial Ultrasound Date Last Menstrual Period Date Ultra Sound Weeks Gestation 0 Eighteen To Twenty Week Homero Update Ultra Sound Date Fundal Height At Umbil Quickening Date Ultra Sound Latest Weeks Gestation Final Homero Confirmed By Final Homero Confirmed Date Final Homero Date Ultra Sound Latest Days Gestation 0 0 Menstrual History Last Menstrual Date Menses Monthly On Bcp Conception Prior Menses Frequency Hcg Plus Date Menarche Onset Age Delivery Information Delivery Date Delivery Type Labor Anesthesia Weeks Gestation Incision Type Labor Labor Length Hrs Delivered By Post Complications Tubal Sterilization Discharge Date Comments 3 Discharge Information Feeding Method Contraceptive Method Maternal HG B and HCT Levels
--- OUTSIDE RECORDS SUMMARY | 2025-01-29 20:30 | XMS_ITS | Encounter Summary ---
Author Organization [facility] Address Formerly [facility], [id number] [place] [address] Care Team Providers Care Filling Hand Name Role Phone Unavailable Primary Care Provider Unavailabl e Encounter Details Date Type Department Care Team (Late st Contact Info) Description 07/26/2018 Hospital Follow-up Call [facility] [place] [address] Tamara Robb, RN Social History Tobacco Use Types Packs/Day Years Used Date Smoking Tobacco: Never Smokeless Tobacco: Never Alcohol Use Standard Drinks/Week Comments No 0 (1 standard drink = 0.6 oz pur e alcohol) Comments No Sex and Gender Information Value Date Recorded Sex Assigned at Not on file Legal Sex Female 6:07 PM CDT Gender Identity Not on file Sexual Orientation Not on file documented as of this encounter Plan of Treatment Not on file documented as of this encounter Visit Diagnoses Not on filedocumented in this encounter
--- OUTSIDE RECORDS SUMMARY | 2025-01-29 20:30 | XMS_ITS | Clinical Summary ---
Author Organization [facility] Address [facility] [place] [address] Care Team Providers Care Song Lyricist Name Role Phone Unavailable Primary Care Provider Unavailabl e Allergies No known active allergies Medications vitamin, low iron, ( VITAMIN WITH IRON) 27-0.8 MG tablet Take 1 tablet by mouth daily. Active ferrous sulfate, 65 mg elemental, 325 (65 FE) MG tablet Take 325 mg by mouth daily with breakfast. Active Active Problems Problem Noted Date Diagnosed Date Previous delivery a ffecting , antepartum ([facility]) 07/19/2018 Previous delivery, antepartum ([facility]) 07/18/2018 ([facility]) 07/18/2018 Family History Medical History Relation Comments Asthma Father Hypertension Maternal Grandmother Diabetes Paternal Grandfather Diabetes Paternal Grandmother Relation Status Comments Father Maternal Grandfather Alive Maternal Grandmother Paternal Grandfather Alive Paternal Grandmother Social History Tobacco Use Types Packs/Day Years Used Date Smoking Tobacco: Never Smokeless Tobacco: Never Alcohol Use Standard Drinks/Week Comments No 0 (1 standard drink = 0.6 oz pur e alcohol) Comments No Sex and Gender Information Value Date Recorded Sex Assigned at Not on file Legal Sex Female 6:07 PM CDT Gender Identity Not on file Sexual Orientation Not on file Last Filed Vital Signs Vital Sign Reading Time Taken Comments Blood Pressure 139/87 07/22/2018 8:00 AM CDT Pulse 84 07/22/2018 8:00 AM CDT Temperature 36.3 C (97.4 F) 07/22/2018 8:00 AM CDT Respiratory Rate 18 07/22/2018 8:00 AM CDT Oxygen Saturation 99% 07/22/2018 8:00 AM CDT Inhaled Oxygen Concentration - - Weight 96.6 kg (213 lb) 07/05/2018 3:37 PM CDT Height 165.1 cm (5' 5 ) 07/05/2018 3:37 PM CDT Body Mass Index 35.45 07/05/2018 3:37 PM CDT Plan of Treatment Health Maintenance Due Date Last Done Comments Cervical Cancer Screening Pa p Smear (Age 30 to 64) Every 3 Years 1991 Annual Physical 1994 Hepatitis C 2009 DTaP, Tdap and Td Vaccines ( 1 - Tdap) 2010 Hepatitis B Vaccines (1 of 3 - 19+ 3-dose series) 2010 Cervical Cancer Screening Pa p with HPV Testing (Age 30 to 64) Every 5 Years 2021 Cervical Cancer Screening with HPV 2021 COVID-19 Vaccine (2023-2 5 season) 2024 Influenza Adult (#1) 2024 HPV Vaccines Aged Out No longer eligi ble based on patient's age to complete this topic Meningococcal B Vaccine Aged Out No l onger eligible based on patient's age to complete this topic Meningococcal Vaccine Aged Out No levi tayo eligible based on patient's age to complete this topic Pneumococcal Vaccine: Pediat rics (0 to 5 Years) and At-Risk Patients (6 to 64 Years) Aged Out No longer eligible b ased on patient's age to complete this topic RSV Immunizations Under 20 Months Aged Out No longer eligible based on patient's age to complete this topic [place] [address] [place] [address] Advance Directives * Full Code (Latest Code Status on File) Date Activated Date Inactivated Comments 07/19/2018 10:11 AM 07/22/2018 8:29 PM
[2025-01-29 20:41] VITALS: BP 123/74; PULSE 92; RESP 14; TEMP 36.8; O2SAT 100
[2025-01-29 21:11] LABS: Strep Group A RT-PCR DETECTED (Negative)
[2025-01-29 21:26] LABS: Influenza A QL RT-PCR Negative (Negative); Influenza B QL RT-PCR Negative (Negative); RSV RNA, RT-PCR Negative (Negative); SARS-CoV-2 RNA PCR Negative (Negative)
--- OUTSIDE RECORDS SUMMARY | 2025-01-30 00:02 | XMS_ITS | Clinical Summary ---
Author Organization [facility] Address [facility] [place] [address] Care Team Providers Care Dietitian Teaching Name Role Phone Unavailable Primary Care Provider [...] Date Previous delivery a ffecting , antepartum ([facility]) 07/19/2018 Previous delivery, antepartum ([facility]) 07/18/2018 ([facility]) 07/18/2018 Family History Medical History Relation Comments [...] patient's age to complete this topic [place] [address] [address] Advance Directives * Full Code (Latest Code Status on File) Date Activated Date Inactivated Comments 07/19/2018 10:11 AM 07/22/2018 8:29 PM
--- OUTSIDE RECORDS SUMMARY | 2025-01-30 00:02 | XMS_ITS | Encounter Summary ---
Author Organization [facility] Address [facility] [place] [address] Care Team Providers Care Mill Beam Fitter Name Role Phone Unavailable Primary Care Provider Unavailabl e Encounter Details Date Type Department Care Team (Late st Contact Info) Description 07/26/2018 Hospital Follow-up Call [facility] [place] [address] Tamara Robb, RN Social History Tobacco Use [...]
--- NOTE | 2025-01-30 00:42 | ED_ITS ---
HPI - URI/Sore Throat General Chief Complaint: Upper Respiratory Infection Stated Complaint: sore throat Time Seen by Provider: 01/29/25 23:40 Source: patient Mode of arrival: ambulatory Limitations: no limitations History of Present Illness HPI Narrative: This is a 34-year-old female that presents to the emergency department for cold symptoms. Reports otalgia, sore throat, headache, nausea. Ongoing over the la st couple of days. Denies fevers. Related Data Home Medications ?Medication ?Instructions ?Recorded ?Confirmed ?Last Taken ?Type ferrous sulfate 325 mg (65 mg 325 mg PO DAILY 04/23/24 04/25/24 04/16/24 History iron) tablet Allergies Allergy/AdvReac Type Severity Reaction Status Date / Time No Known Allergies Allergy Verified 01/29/25 20:28 Review of Systems Review of Systems: CONSTITUTIONAL: Denies fever ENT: Reports sore throat, or otalgia. RESPIRATORY: Denies cough All systems reviewed & are unremarkable except as noted in HPI and below PMFSH Past Medical History Medical History Patient denies medical problems Social History Social History Smoking status: Never smoker Alcohol intake: current Drinks per week: 1 Living arrangements: with family Spiritual care concerns: No Exam Narrative: GENERAL: Well-appearing, well-nourished, and in no acute distress. HEAD: Normocephalic, atraumatic. EYES: EOMI. ENT: Nares clear, no rhinorrhea or epistaxis. Mucous membranes moist. Oropharynx with symmetric tonsillar hypertrophy, no exudate or other lesions. No trismus. Uvula midline. Bilateral TMs pearly cano non-bulging NECK: Supple. No adenopathy or masses. CHEST: Clear to auscultation. No respiratory distress. No wheezes rales or rhonchi HEART: Regular rate and rhythm. No murmur heard. Normal peripheral pulses. EXTREMITIES: Normal range of motion. No edema. SKIN: Warm, dry, no rash. NEURO: No focal deficits. Alert and oriented x3. PSYCH: Normal mood and affect Course Course Emergency Course: patient updated on her workup and agrees with plan of care Vital Signs Vital signs: Vital Signs Temperature 98.2 F 01/29/25 20:41 Pulse Rate 92 01/29/25 20:41 Respiratory Rate 14 01/29/25 20:41 Blood Pressure 123/74 01/29/25 20:41 Pulse Oximetry 100 01/29/25 20:41 Oxygen Delivery Autopap 01/29/25 20:41 Temperature 98.2 F 01/29/25 20:41 Pulse Rate 92 01/29/25 20:41 Respiratory Rate 14 01/29/25 20:41 Blood Pressure 123/74 01/29/25 20:41 Pulse Oximetry 100 01/29/25 20:41 Oxygen Delivery Autopap 01/29/25 20:41 MDM - URI/Sore Throat MDM Narrative Medical decision making narrative: Patient presents the emergency department for cold symptoms ongoing over the last couple of days. She is afebrile and nontoxic appearing. Lungs are clear on exam. Patient is strep positive. She has symmetric tonsillar hypertrophy, no evidence for USER ACCEPTANCE TESTER. Will be started on oral antibiotics. She was given warnings to return to the ER Differential Diagnosis Differential diagnosis: Likely upper respiratory infection, otitis media, sinusitis, viral infection, bronchitis, influenza, pharyngitis and other (strep) Lab Data Attestation: I reviewed the patient's lab results. Labs: Lab Results 01/29/25 Range/Units 20:45 Influenza A (RT-PCR) Negative (Negative) Influenza B (RT-PCR) Negative (Negative) RSV (RT-PCR) Negative (Negative) SARS-CoV-2 RNA (RT-PCR) Negative (Negative) Group A Strep (PCR) Detected A (Negative) Critical Care Time Critical Care Time Critical Care Time: No Discharge Plan Discharge Clinical Impression: Strep throat Patient Disposition: Home, Self-Care Condition: Stable Instructions: Antibiotic Form, Strep Throat (ED) Additional Instructions: Return to the emergency department for worsening symptoms, or any other concerns Remain well-hydrated, get plenty of rest. Take Tylenol or Motrin [id number] for pain as needed. Flonase for nasal congestion. Zyrtec for runny nose. Lozenges or Chloraseptic spray for sore throat. Take oral antibiotic as prescribed Follow up with your primary care doctor Patient Language: Dutch Prescriptions: New penicillin V potassium 500 mg tablet 500 mg PO Q12H 10 Days Qty: 20 0RF No Action ferrous sulfate 325 mg (65 mg iron) Tablet 325 mg PO DAILY Follow-up/Referrals: Arnold Bocanegra MD [Primary Care Provider] -
[2025-01-30] MEDS: dexAMETHasone SOD PHOS INJ 10 MG/ML 1 ML VIAL IM (01:18)
[2025-01-30] MEDS: KETOROLAC 30 MG/ML VIAL (*BKC) IM (01:18)
[2025-01-30 02:24] VITALS: BP 118/70; PULSE 90; RESP 15; O2SAT 100
== END 2025-01-30 02:26 | disposition home or self-care (01) ==
PROVIDERS: Emergency Medicine; Emergency Provider Physician Assistant; PCP Emergency Medicine
DX: J02.0 Streptococcal pharyngitis (principal); Z20.822 Contact with and (suspected) exposure to COVID-19
CPT/HCPCS: 87637; 87651; 96372; 99284; J1100; J1885